=== PATIENT | male | born 1985 | race Caucasian/White ===

== ENCOUNTER 2018-02-05 12:18 | Observation (INO) | payer OTHER ==
[2018-02-05] MEDS ORDERED: NITRO-BID 2% UD PACKETS TOP ONE (12:35)
[2018-02-05] MEDS ORDERED: BABY ASPIRIN 81 MG CHEW PO ONE (12:35)
[2018-02-05] MEDS ORDERED: Reglan 10 MG/2 ML IV ONE (12:37)
[2018-02-05] MEDS ORDERED: NITRO-BID 2% UD PACKETS ONE (12:50)
[2018-02-05] MEDS ORDERED: BABY ASPIRIN 81 MG CHEW ONE (12:50)
[2018-02-05] MEDS ORDERED: Reglan 10 MG/2 ML ONE (12:50)
--- NOTE | 2018-02-05 12:56 | ERPHSYRPT ---
- History of Present Illness Time Seen by Provider: 02/05/18 12:21 Historian: patient, family, old records, other (Dr Michel) Exam Limitations: no limitations Patient Subjective Stated Complaint: chest pain, nausea Triage Nursing Assessment: pt to er c/o chest pain since approximately 0545, nausea, no diaphoresis, family hx of cardiac disease, father under age 50 wtih first [place] Physician History: awoke by CP this am; laying on his right side; pressure epig to right shoulder; strong family hx; at young age; had heart cath no blockage in the past; ate [employer] afterwards without effect Timing/Duration: today Activities at Onset: sleep Quality: pressure, sharpness Location: substernal, epigastric Chest Pain Radiation: back Severity of Pain-Max: severe Severity of Pain-Current: moderate Modifying Factors: Improves With: nothing Associated Symptoms: nausea, heartburn, abdominal pain Prior Chest Pain/Cardiac Workup: non-cardiac Nitro Today/Relief: provided by ED Aspirin Treatment Today: provided by ED Allergies/Adverse Reactions: No Known Drug Allergies Allergy (Unverified 02/05/18 14:04) Home Medications: Citalopram Hydrobromide 20 mg* [ceLEXa 20 MG] 02/05/18 [History] Pravastatin Sodium 02/05/18 [History] Hx Tetanus, Diphtheria Vaccination/Date Given: No Hx Influenza Vaccination/Date Given: No Hx Pneumococcal Vaccination/Date Given: No - Review of Systems Constitutional: No Symptoms Eyes: No Symptoms Ears, Nose, & Throat: No Symptoms Respiratory: No Cough, No Dyspnea, No Wheezing Cardiac: Chest Pain, No Palpitations, No Syncope Abdominal/Gastrointestinal: Abdominal Pain, Nausea, No Vomiting, No Diarrhea Genitourinary Symptoms: No Symptoms Musculoskeletal: No Symptoms Skin: No Symptoms Neurological: No Symptoms Psychological: No Symptoms Endocrine: No Symptoms Hematologic/Lymphatic: No Symptoms Immunological/Allergic: No Symptoms - Past Medical History Pertinent Past Medical History: Yes Neurological History: No Pertinent History ENT History: No Pertinent History Cardiac History: Coronary Artery Disease, Hypertension Respiratory History: No Pertinent History Endocrine Medical History: No Pertinent History Musculoskeletal History: No Pertinent History GI Medical History: GERD History: No Pertinent History Psycho-Social History: No Pertinent History Male Reproductive Disorders: No Pertinent History - Past Surgical History Past Surgical History: Yes Neuro Surgical History: No Pertinent History Cardiac: Cardiac Catheterization Respiratory: No Pertinent History Gastrointestinal: No Pertinent History Genitourinary: Kidney Surgery Musculoskeletal: No Pertinent History Male Surgical History: No Pertinent History Other Surgical History: tonsils - Social History Smoking Status: Never smoker Exposure to second hand smoke: No Alcohol Use: Socially Drug Use: none Patient Lives Alone: No Significant Family History: heart disease, hypertension - Nursing Vital Signs Nursing Vital Signs: Initial Vital Signs Temperature 97.9 F 02/05/18 12:24 Pulse Rate 98 H 02/05/18 12:24 Respiratory Rate 30 H 02/05/18 12:24 Blood Pressure 143/84 02/05/18 12:24 O2 Sat by Pulse Oximetry 98 02/05/18 12:24 Pain Scale Pain Intensity 2 - Physical Exam General Appearance: moderate distress Eye Exam: PERRL/EOMI, eyes nml inspection, No photophobia Ears, Nose, Throat Exam: normal ENT inspection, TMs normal, pharynx normal, moist mucous membranes Neck Exam: normal inspection, non-tender, supple, full range of motion, No meningismus, No carotid bruit, No JVD Respiratory Exam: normal breath sounds, lungs clear, airway intact, No chest tenderness, No respiratory distress Cardiovascular Exam: regular rate/rhythm, normal heart sounds, normal peripheral pulses, capillary refill <2 sec, No murmur Gastrointestinal/Abdomen Exam: soft, normal bowel sounds, tenderness (epig> RUQ) , No distention, No guarding, No rebound, No organomegaly Rectal Exam: deferred Back Exam: normal inspection, normal range of motion, No CVA tenderness, No vertebral tenderness Extremity Exam: normal inspection, normal range of motion, No pelvis stable, No ghada's sign, No pedal edema Neurologic Exam: alert, oriented x 3, cooperative, reflesher II-XII nml as tested, normal mood/affect, nml cerebellar function, nml station & gait Skin Exam: normal color, warm, dry, No rash Lymphatic Exam: No adenopathy SpO2 Interpretation: normal SpO2: 97 Oxygen Delivery: Room Air - Course Nursing assessment & vital signs reviewed: Yes EKG Interpreted by Me: RATE (93), Sinus Rhythm, NORMAL AXIS, NORMAL INTERVALS, NORMAL QRS, NORMAL ST-T Rhythm Strip: Rate (92), Normal Sinus Rhythm - Radiology Exams Chest X-ray Interpretation: Reviewed by me, Teleradiologist Report, No Pneumothorax, Nml Heart Size, Infiltrates (right base and elevated right ced diapraghm), Other (atelectasis with infiltrate right base) Ordered Tests: Active Orders 24 hr Category Date Time Status Nip Wrapper STAT Care 02/05/18 12:36 Active EKG-ER Only STAT Care 02/05/18 12:35 Active Pulse Oximetry (ED) STAT Care 02/05/18 12:35 Active Re-Check Vital Signs STAT Care 02/05/18 12:35 Active CHEST 1 VIEW (PORTABLE) Stat Exams 02/05/18 12:36 Completed AMYLASE Stat Lab 02/05/18 12:45 Completed BLOOD CULTURE Stat Lab 02/05/18 14:36 Ordered CBC W DIFF Stat Lab 02/05/18 12:45 Completed CMP Stat Lab 02/05/18 12:45 Completed LIPASE Stat Lab 02/05/18 12:45 Completed NT PRO BNP Stat Lab 02/05/18 12:45 Completed PROTIME WITH INR Stat Lab 02/05/18 12:45 Received TROPONIN Stat Lab 02/05/18 13:51 Completed Transfer Order Routine Transfer 02/05/18 Ordered Medication Summary Generic Name Dose Route Start Last Admin Trade Name Freq PRN Reason Stop Dose Admin Ceftriaxone Sodium/Dextrose 1 g in 50 mls @ 100 mls/hr 02/05/18 14:36 Rocephin 1 Gm-D5w 50 Ml Bag IV 02/05/18 15:05 STAT STA Discontinued Medications Generic Name Dose Route Start Last Admin Trade Name Freq PRN Reason Stop Dose Admin Acetaminophen Confirm 02/05/18 14:04 Tylenol Extra Strength 500 Mg Administered 02/05/18 14:05 Dose 1,000 mg .ROUTE .STK-MED ONE Acetaminophen 1,000 mg 02/05/18 14:05 02/05/18 14:07 Tylenol Extra Strength 500 Mg PO 02/05/18 14:06 1,000 mg STAT STA Administration Aspirin 324 mg 02/05/18 12:35 02/05/18 12:53 Baby Aspirin 81 Mg Chew PO 02/05/18 12:36 324 mg STAT ONE Administration Aspirin Confirm 02/05/18 12:50 Baby Aspirin 81 Mg Chew Administered 02/05/18 12:51 Dose 81 mg .ROUTE .STK-MED ONE Metoclopramide HCl 10 mg 02/05/18 12:37 02/05/18 12:56 Reglan 10 Mg/2 Ml IV 02/05/18 12:38 10 mg STAT ONE Administration Metoclopramide HCl Confirm 02/05/18 12:50 Reglan 10 Mg/2 Ml Administered 02/05/18 12:51 Dose 10 mg .ROUTE .STK-MED ONE Nitroglycerin 1 gm 02/05/18 12:35 02/05/18 12:54 Nitro-Bid 2% Ud Packets TOP 02/05/18 12:36 1 gm STAT ONE Administration Nitroglycerin Confirm 02/05/18 12:50 Nitro-Bid 2% Ud Packets Administered 02/05/18 12:51 Dose 1 gm .ROUTE .STK-MED ONE Sucralfate 1,000 mg 02/05/18 13:00 02/05/18 13:09 Carafate Suspension 1000 Mg/10 Ml PO 02/05/18 13:01 1,000 mg STAT ONE Administration Sucralfate Confirm 02/05/18 13:03 Carafate 1 Gm Administered 02/05/18 13:04 Dose 1 g PO .STK-MED ONE Lab/Rad Data: Laboratory Result Diagrams 02/05/18 12:45 02/05/18 12:45 Laboratory Results 02/05/18 02/05/18 02/05/18 Range/Units 13:51 12:45 12:45 WBC (4.0-10.5) K/mm3 RBC (4.1-5.6) M/mm3 Hgb (12.5-18.0) gm/dl Hct (42-50) % MCV (78-100) fl MCH (26-32) pg MCHC (32-36) g/dl RDW (11.5-14.0) % Plt Count (150-450) K/mm3 MPV (6-9.5) fl Gran % (36.0-66.0) % Lymphocytes % (24.0-44.0) % Monocytes % (0.0-12.0) % Eosinophils % (0.00-5.0) % Basophils % (0.0-0.4) % Basophils # (0-0.4) Sodium 142 (137-145) mmol/L Potassium 4.1 (3.5-5.1) mmol/L Chloride 103 (98-107) mEq/L Carbon Dioxide 27 (22-30) mmol/L Anion Gap 17.1 H (5-15) MEQ/L BUN 18 (9-20) mg/dl Creatinine 0.73 (0.66-1.25) mg/dl Estimated GFR > 60 ML/MIN Glucose 124 H (74-106) mg/dL Calcium 9.8 (8.4-10.2) mg/dl Total Bilirubin 0.90 (0.2-1.3) mg/d? AST 25 (17-59) U/L ALT 35 (0-50) U/L Alkaline Phosphatase 76 (38-126) U/L Troponin I < 0.012 (0.000-0.034) ng/ml NT-Pro-B Natriuret Pep 20.5 (0-450) pg/ml Serum Total Protein 8.2 (6.3-8.2) mg/dl Albumin 4.6 (3.5-5.0) g/dl Amylase 65 (30-110) U/L Lipase 102 (23-300) U/L 02/05/18 Range/Units 12:45 WBC 7.2 (4.0-10.5) K/mm3 RBC 5.06 (4.1-5.6) M/mm3 Hgb 14.8 (12.5-18.0) gm/dl Hct 43.3 (42-50) % MCV 85.6 (78-100) fl MCH 29.2 (26-32) pg MCHC 34.2 (32-36) g/dl RDW 14.4 H (11.5-14.0) % Plt Count 252 (150-450) K/mm3 MPV 9.8 H (6-9.5) fl Gran % 67.6 H (36.0-66.0) % Lymphocytes % 24.2 (24.0-44.0) % Monocytes % 7.1 (0.0-12.0) % Eosinophils % 0.8 (0.00-5.0) % Basophils % 0.3 (0.0-0.4) % Basophils # 0.02 (0-0.4) Sodium (137-145) mmol/L Potassium (3.5-5.1) mmol/L Chloride (98-107) mEq/L Carbon Dioxide (22-30) mmol/L Anion Gap (5-15) MEQ/L BUN (9-20) mg/dl Creatinine (0.66-1.25) mg/dl Estimated GFR ML/MIN Glucose (74-106) mg/dL Calcium (8.4-10.2) mg/dl Total Bilirubin (0.2-1.3) mg/d? AST (17-59) U/L ALT (0-50) U/L Alkaline Phosphatase (38-126) U/L Troponin I (0.000-0.034) ng/ml NT-Pro-B Natriuret Pep (0-450) pg/ml Serum Total Protein (6.3-8.2) mg/dl Albumin (3.5-5.0) g/dl Amylase (30-110) U/L Lipase (23-300) U/L reviewed - Progress Progress: improved (after meds), re-examined Air Movement: good Progress Note: 02/05/18 13:38 rechecked after meds and pain resolved; still slight tenderness epig area with palpation; VS ok; CBC ok; CXR shows right basilar atelectasis with infiltrate;; EKG unremarkable; will monitor and recheck; Dr Michel had called from the office for him to be seen 02/05/18 14:22 rechecked- patient developed a non-specific JEAN and was given tylenol; Troponin pending; will continue to monitor and recheck 02/05/18 14:34 recheck and Troponin ok; Dr Michel consulted and will admit to obs; patient and family notified and agree; will start ATBs here Blood Culture(s) Obtained: No Discussed with : Anand (consulted and sent from office and will admit) Will see patient in: hospital (observation) Counseled pt/family regarding: lab results, diagnosis, need for follow-up, rad results - Departure Time of Disposition: 14:43 Departure Disposition: Observation Clinical Impression: Chest pain at rest, infiltrate right lower lobe Condition: Serious Critical Care Time: No Referrals: KAYLIN MICHEL [Primary Care Provider] - Instructions: Chest Pain (DC)
[2018-02-05] MEDS ORDERED: Carafate SUSPENSION 1000 MG/10 ML PO ONE (13:00)
--- NOTE | 2018-02-05 13:02 | XRAY ---
Indication: Chest pain. Comparison: None Portable chest slightly underinflated with right base infiltrate versus atelectasis and right hemidiaphragm elevation. Remaining heart, lungs, and bony thorax unremarkable.
[2018-02-05] MEDS ORDERED: Carafate 1 GM PO ONE (13:03)
[2018-02-05 13:08] LABS: BASOPHIL % 0.3 % (0.0-0.4); Basophil (Absolute #) 0.02 (0-0.4); Eosinophil % 0.8 % (0.00-5.0); Eosinophil (Absolute #) 0.06 (0-0.5); Granulocyte Absolute (ANC) 4.84 (1.4-6.9); Granulocytes % 67.6 % (36.0-66.0); Hematocrit 43.3 % (42-50); Hemoglobin 14.8 gm/dl (12.5-18.0); Lymphocyte (Absolute #) 1.73 (1.0-4.6); Lymphocytes % 24.2 % (24.0-44.0); Mean Cell Volume 85.6 fl (78-100); Mean Corpuscular Hemoglobin 29.2 pg (26-32); Mean Corpuscular Hgb Concent. 34.2 g/dl (32-36); Mean Platelet Volume 9.8 fl (6-9.5); Monocyte (Absolute #) 0.51 (0.0-1.3); Monocytes % 7.1 % (0.0-12.0); Platelet Count 252 K/mm3 (150-450); Red Blood Count 5.06 M/mm3 (4.1-5.6); Red Cell Distribution Width 14.4 % (11.5-14.0); White Blood Count 7.2 K/mm3 (4.0-10.5)
[2018-02-05 13:31] LABS: AMYLASE 65 U/L (30-110); LIPASE 102 U/L (23-300)
[2018-02-05 13:33] LABS: ALBUMIN 4.6 g/dl (3.5-5.0); ALKALINE PHOSPHATASE 76 U/L (38-126); ANION GAP 17.1 MEQ/L (5-15); BLOOD UREA NITROGEN 18 mg/dl (9-20); CHLORIDE 103 mEq/L (98-107); Calcium 9.8 mg/dl (8.4-10.2); Carbon Dioxide 27 mmol/L (22-30); Creatinine 1 0.73 mg/dl (0.66-1.25); Glucose 124 mg/dL (74-106); Potassium 4.1 mmol/L (3.5-5.1); SGOT/AST 25 U/L (17-59); SGPT/ALT 35 U/L (0-50); SODIUM 142 mmol/L (137-145); Total Protein 8.2 mg/dl (6.3-8.2)
[2018-02-05 13:41] LABS: NT PRO BNP 20.5 pg/ml (0-450)
[2018-02-05] MEDS ORDERED: TYLENOL EXTRA STRENGTH 500 MG ONE (14:04)
[2018-02-05] MEDS ORDERED: TYLENOL EXTRA STRENGTH 500 MG PO STA (14:05)
[2018-02-05] MEDS ORDERED: ROCEPHIN 1 Gm-D5w 50 ml Bag** 1 G/50 ML IVPB IV STA (14:36)
[2018-02-05] MEDS ORDERED: ROCEPHIN 1 Gm-D5w 50 ml Bag** 1 G/50 ML IVPB IV ONE (14:47)
[2018-02-05 15:10] LABS: INR 1.18 (0.8-3.0)
[2018-02-05] MEDS ORDERED: MAALOX ES 30 ML UNIT DOSE PO PRN (15:49)
[2018-02-05] MEDS ORDERED: Zofran 4 MG/2 ML VIAL IV PRN (15:49)
[2018-02-05] MEDS ORDERED: MILK OF MAGNESIA 30 ML PO PRN (15:49)
[2018-02-05] MEDS ORDERED: Senokot-S Tablet PO PRN (15:49)
[2018-02-05] MEDS: TYLENOL 325 MG PO PRN ×2 (17:43→21:41)
[2018-02-05] MEDS: NITRO-BID 2% UD PACKETS TOP SCH (21:31)
[2018-02-06] MEDS ORDERED: Nitrostat 0.4 MG Tablet SL PRN (04:55)
[2018-02-06] MEDS ORDERED: MORPHINE SULFATE 2 MG INJ IV PRN (05:18)
[2018-02-06] MEDS: NITRO-BID 2% UD PACKETS TOP SCH ×2 (05:24→14:44)
[2018-02-06] MEDS: TYLENOL 325 MG PO PRN ×2 (05:24→12:52)
[2018-02-06 06:02] LABS: Risk Ratio 6.2
[2018-02-06 06:13] LABS: LDL, DIRECT 132.37 mg/dL (30-100)
--- NOTE | 2018-02-06 08:19 | PCM.NOTE ---
Date and Time: 02/06/18812 Subjective Assessment: Sent to ER yesterday from office with chest pain/epigastric/RUQ pain. Found to have infiltrate vs atelectasis on his CXR. [place] better with reglan in the ER. This morning started having L sided upper abd/chest pain. Troponin was negative. Other than the troponin done in the ER and the one done this morning , no troponins were done overnight. He vomited after eating last night. Objective Exam General Appearance: no apparent distress, alert, other (mildly somnolent) Neurologic Exam: oriented x 3, cooperative Skin Exam: normal color, warm, dry, No rash Respiratory Exam: normal breath sounds, lungs clear, No crackles/rales, No rhonchi, No wheezing Cardiovascular Exam: regular rate/rhythm, normal heart sounds, No murmur Gastrointestinal/Abdomen Exam: soft, normal bowel sounds, No tenderness, No distention, No mass, No guarding, No rebound Extremity Exam: No pedal edema, No swelling Back Exam: normal inspection, No rash OBJECTIVE DATA Vital Signs: Vital Signs - 24 hr Temp Pulse Pulse Resp BP Pulse Ox 02/06/18 07:02 98.4 F 78 20 122/81 95 02/06/18 04:25 97.9 F 72 20 117/62 98 02/06/18 00:04 98.3 F 88 20 121/61 94 L 02/05/18 20:10 98.3 F 100 H 18 124/59 96 02/05/18 16:12 97.8 F 105 H 20 134/61 95 02/05/18 15:49 97.8 F 105 H 20 134/61 95 02/05/18 15:21 102 H 16 109/69 98 02/05/18 14:47 97 02/05/18 12:48 97 02/05/18 12:35 99 H 18 146/89 96 02/05/18 12:24 97.9 F 95 H 98 H 30 H 143/84 98 Pain Assessment - Last Documented Pain Intensity 2 Pain Scale Used 0-10 Pain Scale Intake and Output: Intake & Output 02/03/18 02/04/18 02/05/18 02/06/18 11:59 11:59 11:59 11:59 Intake Total 1460 Balance 1460 Weight 157.8 kg Lab Results: Lab Results-Last 24 Hours 02/06/18 02/06/18 Range/Units 05:10 05:10 Troponin I < 0.012 (0.000-0.034) ng/ml Triglycerides 177 H (30-150) mg/dl Cholesterol 229 H (50-200) mg/dl LDL Cholesterol 132.37 H (30-100) mg/dL HDL Cholesterol 37 L (40-60) mg/dl Heart Disease Risk Ratio 6.2 Assessment/Plan (1) Pneumonia Current Visit: Yes Status: Acute Qualifiers: Pneumonia type: due to unspecified organism Laterality: right Lung location: lower lobe of lung Qualified Code(s): J18.1 - Lobar pneumonia, unspecified organism Assessment & Plan: On rocephin and zithromax. Infiltrate v atelectasis; however if PNA could explain his SOB yesterday morning. Code(s): J18.9 - PNEUMONIA, UNSPECIFIED ORGANISM (2) Chest pain Current Visit: Yes Status: Acute Qualifiers: Chest pain type: unspecified Qualified Code(s): R07.9 - Chest pain, unspecified Assessment & Plan: Two troponins that were done was negative. Incident report being filed regarding the fact that only 2 troponins were done. Code(s): R07.9 - CHEST PAIN, UNSPECIFIED (3) Abdominal pain Current Visit: Yes Status: Acute Qualifiers: Abdominal location: unspecified location Qualified Code(s): R10.9 - Unspecified abdominal pain Assessment & Plan: was epigastric and RUQ; now LUQ. I think his chronic intermittent pain may be somewhat related to slowed gastric emptying. Will try reglan at home intermittenly. Code(s): R10.9 - UNSPECIFIED ABDOMINAL PAIN (4) Hyperlipidemia Current Visit: Yes Status: Acute Qualifiers: Hyperlipidemia type: unspecified Qualified Code(s): E78.5 - Hyperlipidemia , unspecified Code(s): E78.5 - HYPERLIPIDEMIA, UNSPECIFIED
[2018-02-06] MEDS ORDERED: Ecotrin 325 MG PO SCH (10:00)
[2018-02-06] MEDS ORDERED: ROCEPHIN 1 Gm-D5w 50 ml Bag** 1 G/50 ML IVPB IV SCH (10:00)
[2018-02-06] MEDS ORDERED: ENOXAPARIN SODIUM SQ SCH (10:00)
--- NOTE | 2018-02-06 15:31 | PCM.DS ---
Discharge Summary Date of Admission: 02/05/18 15:15 Admitting Physician: KAYLIN NUÑEZ Primary Care Provider: KAYLIN NUÑEZ Allergies Allergies No Known Drug Allergies Allergy (Unverified 02/05/18 14:04) Hospital Summary - Hospital Course Hospital Course: Pt admitted through the ER with pneumonia and CP (r/o MS) after being seen in the office by me. He woke early yesterday morning with epigastric pain, 10/10 and shortness of breath. Pain was better, still in epigstrum and RUQ , yesterday when he came to the office. He had a negative troponin and EKG in the ER. No further troponins were done, in error, until early this morning when he started having LUQ pain. That troponin was also negative. He states that reglan given him in the ER made his abd pain better. Currently he is tolerating po and feeling better. - Vitals & Intake/Output Vital Signs: Vital Signs Temperature 97.3 F 02/06/18 11:08 Pulse Rate 82 02/06/18 11:08 Respiratory Rate 20 02/06/18 11:08 Blood Pressure 129/63 02/06/18 11:08 O2 Sat by Pulse Oximetry 95 02/06/18 11:08 Intake & Output: Intake & Output 02/04/18 02/05/18 02/06/18 02/07/18 11:59 11:59 11:59 11:59 Intake Total 0 480 Balance 2059 480 Weight 157.8 kg - Lab Result Diagrams: 02/05/18 12:45 02/05/18 12:45 Lab Results-Last 24 Hrs: Lab Results-Last 24 Hours 02/06/18 02/06/18 Range/Units 05:10 05:10 Troponin I < 0.012 (0.000-0.034) ng/ml Triglycerides 177 H (30-150) mg/dl Cholesterol 229 H (50-200) mg/dl LDL Cholesterol 132.37 H (30-100) mg/dL HDL Cholesterol 37 L (40-60) mg/dl Heart Disease Risk Ratio 6.2 - Procedures and Test Procedures and Tests throughout Hospitalization: Therapy Orders & Screens 02/05/18 20:44 EKG ONCE Comment: Diagnosis: chest pain 02/06/18 05:00 EKG ONCE Comment: Diagnosis: chest pain 02/07/18 05:00 EKG ONCE Comment: Diagnosis: chest pain 02/08/18 05:00 EKG ONCE Comment: Diagnosis: chest pain Discharge Exam General Appearance: no apparent distress (exam done this morning), obese, other (somewhat somnolent, but awake during the interview) Neurologic Exam: alert, cooperative Skin Exam: normal color, warm, dry, rash Ears, Nose, Throat Exam: moist mucous membranes Respiratory Exam: normal breath sounds, lungs clear, No crackles/rales, No rhonchi, No wheezing Cardiovascular Exam: regular rate/rhythm, normal heart sounds, No murmur Gastrointestinal/Abdomen Exam: soft, normal bowel sounds, tenderness (mild epigastric and LUQ ttp), guarding, No distention, No rebound Extremity Exam: normal inspection, No pedal edema, No swelling Final Diagnosis/Problem List - Final Discharge Diagnosis/Problem (1) Pneumonia Current Visit: Yes Status: Acute Assessment & Plan: Home on po augmentin. (2) Chest pain Current Visit: Yes Status: Acute Assessment & Plan: Will get one more troponin; if negative, will d/c pt to home. (3) Abdominal pain Current Visit: Yes Status: Chronic Assessment & Plan: acute on chronic. OK to try reglan short term for his episodes of abd pain. 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 (4) Hyperlipidemia Current Visit: Yes Status: Acute Assessment & Plan: He was given a statin here for his elevated cholesterol. However, his [place] 10 yr risk is < 1%, so I will have our staff send a dietary sheet and will try dietary changes for 3-6 mo. - Discharge Disposition: Home, Self-Care Condition: Good Prescriptions: New Amoxicillin/Potassium Clav [Augmentin 875-125 Tablet] 875 mg PO BID #20 tablet Metoclopramide HCl 10 mg [Reglan 10 MG] 10 mg PO QID #12 tablet Continue Citalopram Hydrobromide [Celexa] 40 mg PO HS Pravastatin Sodium [Pravachol] 10 mg PO HS #30 tablet Additional Instructions: Hold the celexa if the reglan is taken. Only take reglan for 2 days in a row, maximum. Only take as needed. If any involuntary muscle movements are noted, stop the reglan right away and contact your doctor or go to ER as these movements can become permanent. Follow up with: JOAQUIN,KAYLIN [Primary Care Provider] - 02/17/18 11:00 am
[2018-02-06 16:06] VITALS: BP 170/83; PULSE 79; O2SAT 98
[2018-02-06] MEDS ORDERED: Zocor 10MG PO SCH (22:00)
[2018-02-06] MEDS ORDERED: ceLEXa 20 MG PO SCH (22:00)
[2018-02-06] MEDS ORDERED: NON-FORMULARY ITEM (Citalopram Hydrobromide [Celexa] 40 MG) PO SCH (22:00)
[2018-02-06] MEDS ORDERED: NON-FORMULARY ITEM (Pravastatin Sodium [Pravachol] 10 MG) PO SCH (22:00)
== END 2018-02-06 17:20 | disposition home or self-care (01) ==
LOC: ED 12:18 → MED SURG 15:15
PROVIDERS: ADMIT Family Medicine; ATTEND Family Medicine
DX: J18.1 Lobar pneumonia, unspecified organism (principal); R07.9 Chest pain, unspecified; R10.9 Unspecified abdominal pain; E78.5 Hyperlipidemia, unspecified; F41.9 Anxiety disorder, unspecified; G47.30 Sleep apnea, unspecified
CPT/HCPCS: 36415; 71045; 80053; 80061; 82150; 83690; 83721; 83880; 84484; 85025; 85610; 87040; 93005; 93041; 93268; 96365; 99285; G0378; J0696; J1650; J2270; J2405; A9270-GY

== ENCOUNTER 2022-11-05 08:54 | Emergency (ER) | payer OTHER ==
[2022-11-05 09:13] VITALS: BP 143/81; PULSE 63; O2SAT 97
== END 2022-11-05 09:32 | disposition left against medical advice (07) ==
LOC: ED 08:54
DX: I10 Essential (primary) hypertension (principal)
CPT/HCPCS: 99281; G0463

== ENCOUNTER 2024-08-23 19:19 | Emergency (ER) | payer OTHER ==
[2024-08-23 19:45] VITALS: TEMP 98
--- NOTE | 2024-08-23 19:49 | ERPHSYRPT ---
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 Triage Nursing Assessment: pt is aox3, pupils perrl, afebrile, pt appears in pain, pt resps easy and non labored, pt radial pulses strong and equal, pt abd tender to the right side with pain that radiates to the right flank and pain, bowel sounds are normoactive x4, pt skin pink warm dry. Allergies/Adverse Reactions: No Known Drug Allergies Allergy (Verified 08/23/24 19:45) Home Medications: Citalopram Hydrobromide [Celexa] 40 mg PO HS 02/05/18 [History] Amlodipine Besylate 5 mg [Norvasc 5 mg] 10 mg PO DAILY 08/23/24 [History] Fluoxetine HCl 10 mg [Prozac 10 mg] 10 mg PO DAILY 08/23/24 [History] Hx Tetanus, Diphtheria Vaccination/Date Given: Yes Hx Influenza Vaccination/Date Given: No Hx Pneumococcal Vaccination/Date Given: No Immunizations Up to Date: Yes Travel Risk - International Travel Have you traveled outside of the country in past 3 weeks: No - Emerging Infectious Disease Are you exhibiting symptoms associated with any current EIDs: No - Past Medical History Pertinent Past Medical History: Yes Neurological History: No Pertinent History ENT History: No Pertinent History Cardiac History: High Cholesterol, Hypertension Respiratory History: No Pertinent History Endocrine Medical History: No Pertinent History Musculoskeletal History: No Pertinent History GI Medical History: GERD History: Other Psycho-Social History: Anxiety, Depression Male Reproductive Disorders: No Pertinent History Other Medical History: unknown kidney injury-surgery as a child. pre-DM. OCD. dyslexia - Past Surgical History Past Surgical History: Yes Neuro Surgical History: No Pertinent History Cardiac: Cardiac Catheterization Respiratory: No Pertinent History Gastrointestinal: Appendectomy Genitourinary: Kidney Surgery Musculoskeletal: No Pertinent History Male Surgical History: No Pertinent History Other Surgical History: R kidney surgery as a child-congential defect Significant Family History: heart disease, hypertension - Social History Smoking Status: Former smoker Exposure to second hand smoke: No Alcohol Use: Socially Drug Use: none Patient Lives Alone: No - Social Determinants of Health Will the patient participate in the screening: Yes Do you worry about a steady place to live?: No Do you have any problems with any of the following?: No known problems In the past 12 months,have you had to go without utilities?: No Transportation Issues: No Has anyone in your support network made you feel unsafe?: No Have you or anyone in your house had to go without enough: No - Nursing Vital Signs Nursing Vital Signs: Initial Vital Signs Temperature 98.0 F 08/23/24 19:25 Pulse Rate 89 08/23/24 19:25 Respiratory Rate 20 08/23/24 19:25 Blood Pressure 150/89 08/23/24 19:25 O2 Sat by Pulse Oximetry 94 L 08/23/24 19:25 Pain Scale Pain Intensity 2 - Physical Exam SpO2: 94 Ordered Tests: Active Orders 24 hr Category Date Time Status EKG-ER Only STAT Care 08/23/24 19:47 Active ABDOMEN AND PELVIS W/0 CONTRAS [CT] Stat Exams 08/23/24 19:47 Completed CBC W DIFF Stat Lab 08/23/24 19:35 Completed CMP Stat Lab 08/23/24 19:35 Completed LIPASE Stat Lab 08/23/24 19:35 Completed TROPONIN Q4H Lab 08/23/24 19:35 Completed TROPONIN Q4H Lab 08/24/24 00:00 Ordered TROPONIN Q4H Lab 08/24/24 04:00 Ordered UA W/RFX UR CULTURE Stat Lab 08/23/24 19:50 Completed Medication Summary Discontinued Medications Generic Name Dose Route Start Last Admin Trade Name Freq PRN Reason Stop Dose Admin Sodium Chloride 1,000 mls @ 999 mls/hr 08/23/24 19:47 08/23/24 20:59 Sodium Chloride 0.9% 1000 Ml IV 08/23/24 20:47 Infused .Q1H1M STA Infusion Acetaminophen 1,000 mg in 100 mls @ 400 mls/hr 08/23/24 19:48 08/23/24 19:56 Ofirmev IV 08/23/24 20:02 400 mls/hr 1HRPRIOR ONE Administration Acetaminophen Confirm 08/23/24 19:51 Ofirmev Administered 08/23/24 19:52 Dose 100 mls @ ud IV [facility] ONE Sodium Chloride Confirm 08/23/24 19:51 Sodium Chloride 0.9% 1000 Ml Administered 08/23/24 19:52 Dose 1,000 mls @ ud .ROUTE .STK-MED ONE Lab/Rad Data: Laboratory Result Diagrams 08/23/24 19:35 08/23/24 19:35 Laboratory Results 08/23/24 08/23/24 08/23/24 Range/Units 19:50 19:35 19:35 WBC (4.23-9.07) x10^3/uL RBC (4.63-6.08) x10^6/uL Hgb (13.7-17.5) g/dL Hct (40.1-51.0) % MCV (79.0-92.2) fL MCH (25.7-32.2) pg MCHC (32.3-36.5) g/dL RDW (11.6-14.4) % Plt Count (163-337) x10^3/uL MPV (9.4-12.4) fL Gran % (34.0-67.9) % Immature Gran % (Auto) (0.001-0.429) % Nucleat RBC Rel Count (0.00-0.2) % Eos # (Auto) (0.04-0.54) x10^3/uL Immature Gran # (Auto) (0.001-0.031) x10^3u/L Absolute Lymphs (auto) (1.32-3.57) x10^3/uL Absolute Monos (auto) (0.30-0.82) x10^3/uL Absolute Nucleated RBC (0.00-0.012) x10^3u/L Lymphocytes % (21.8-53.1) % Monocytes % (5.3-12.2) % Eosinophils % (0.8-7.0) % Basophils % (0.2-1.2) % Absolute Granulocytes (1.78-5.38) x10^3/uL Basophils # (0.01-0.08) x10^3/uL Sodium 140 (135-145) mmol/L Potassium 4.0 (3.5-5.1) mmol/L Chloride 102 (98-107) mmol/L Carbon Dioxide 26 (22-30) mmol/L Anion Gap 16.3 H (5-15) MEQ/L BUN 18 (9-20) mg/dL Creatinine 0.82 (0.66-1.25) mg/dL Estimated GFR 115.3 ML/MIN Glucose 135 H (74-106) mg/dL Calcium 9.8 (8.4-10.2) mg/dL Total Bilirubin 1.20 (0.2-1.3) mg/dL AST 28 (17-59) U/L ALT 39 (0-50) U/L Alkaline Phosphatase 106 (38-126) U/L Troponin I < 0.012 (0.000-0.033) ng/mL Serum Total Protein 8.1 (6.3-8.2) g/dL Albumin 4.8 (3.5-5.0) g/dL Lipase 93 (23-300) U/L Urine Color Yellow (Yellow) Urine Appearance Clear (Clear) Urine pH 5.5 (4.6-8.0) Ur Specific [place] 1.025 (1.005-1.030) Urine Protein Trace A (Negative) Urine Glucose (UA) Negative (Negative) mg/dL Urine Ketones Negative (Negative) Urine Blood Negative (Negative) Urine Nitrite Negative (Negative) Urine Bilirubin Negative (Negative) Urine Urobilinogen 1.0 A (0.2) mg/dL Ur Leukocyte Esterase Negative (Negative) U Hyaline Cast (Auto) NONE SEEN (0-2) /LPF Urine Microscopic RBC 0-2 (0-5) /HPF Urine Microscopic WBC 0-2 (0-5) /HPF Ur Epithelial Cells None Seen (None Seen) /HPF Urine Bacteria None Seen (None Seen) /HPF Urine Culture Reflexed NO (NO) 08/23/24 Range/Units 19:35 WBC 9.5 H (4.23-9.07) x10^3/uL RBC 4.95 (4.63-6.08) x10^6/uL Hgb 14.5 (13.7-17.5) g/dL Hct 43.5 (40.1-51.0) % MCV 87.9 (79.0-92.2) fL MCH 29.3 (25.7-32.2) pg MCHC 33.3 (32.3-36.5) g/dL RDW 14.6 H (11.6-14.4) % Plt Count 299 (163-337) x10^3/uL MPV 9.6 (9.4-12.4) fL Gran % 74.8 H (34.0-67.9) % Immature Gran % (Auto) 0.6 H (0.001-0.429) % Nucleat RBC Rel Count 0.0 (0.00-0.2) % Eos # (Auto) 0.04 (0.04-0.54) x10^3/uL Immature Gran # (Auto) 0.06 H (0.001-0.031) x10^3u/L Absolute Lymphs (auto) 1.84 (1.32-3.57) x10^3/uL Absolute Monos (auto) 0.45 (0.30-0.82) x10^3/uL Absolute Nucleated RBC 0.00 (0.00-0.012) x10^3u/L Lymphocytes % 19.3 L (21.8-53.1) % Monocytes % 4.7 L (5.3-12.2) % Eosinophils % 0.4 L (0.8-7.0) % Basophils % 0.2 (0.2-1.2) % Absolute Granulocytes 7.12 H (1.78-5.38) x10^3/uL Basophils # 0.02 (0.01-0.08) x10^3/uL Sodium (135-145) mmol/L Potassium (3.5-5.1) mmol/L Chloride (98-107) mmol/L Carbon Dioxide (22-30) mmol/L Anion Gap (5-15) MEQ/L BUN (9-20) mg/dL Creatinine (0.66-1.25) mg/dL Estimated GFR ML/MIN Glucose (74-106) mg/dL Calcium (8.4-10.2) mg/dL Total Bilirubin (0.2-1.3) mg/dL AST (17-59) U/L ALT (0-50) U/L Alkaline Phosphatase (38-126) U/L Troponin I (0.000-0.033) ng/mL Serum Total Protein (6.3-8.2) g/dL Albumin (3.5-5.0) g/dL Lipase (23-300) U/L Urine Color (Yellow) Urine Appearance (Clear) Urine pH (4.6-8.0) Ur Specific [place] (1.005-1.030) Urine Protein (Negative) Urine Glucose (UA) (Negative) mg/dL Urine Ketones (Negative) Urine Blood (Negative) Urine Nitrite (Negative) Urine Bilirubin (Negative) Urine Urobilinogen (0.2) mg/dL Ur Leukocyte Esterase (Negative) U Hyaline Cast (Auto) (0-2) /LPF Urine Microscopic RBC (0-5) /HPF Urine Microscopic WBC (0-5) /HPF Ur Epithelial Cells (None Seen) /HPF Urine Bacteria (None Seen) /HPF Urine Culture Reflexed (NO) - Progress Progress: improved Medical Desision Making - Diagnostic Testing Diagnostic test were ordered, analyzed, and reviewed by me: Yes Radiological Interpretation: Reviewed by me, Teleradiologist Report - Risk of complications Minimal Risk: Minimal risk of morbidity - Departure Departure Disposition: Home Clinical Impression: Right flank pain Condition: Stable Critical Care Time: No Referrals: SKINNY GILMAN DO [Primary Care Provider] - Follow up/PCP as directed Additional Instructions: follow up w/ PCP Dr Gilman this week recommend ibuprofen for pain, heating pad for discomfort recommend oral hydration w/ clear liquids/electrolyte containing fluids return to ED if: develop fevers that do not resolve w/ tylenol, develop bloody vomiting or stool, pain becomes unbearable
[2024-08-23] MEDS ORDERED: Sodium Chloride 0.9% 1000 ML 1,000 ML ONE (19:51)
[2024-08-23] MEDS ORDERED: OFIRMEV 100 ML IV ONE (19:51)
[2024-08-23] MEDS: Sodium Chloride 0.9% 1000 ML 1,000 ML IV STA (19:55)
[2024-08-23] MEDS: OFIRMEV 1,000 MG/100 ML ML IV ONE (19:56)
[2024-08-23 20:01] LABS: Absolute Neutrophil Ct (ANC) 7.12 x10^3/uL (1.78-5.38); BASOPHIL % 0.2 % (0.2-1.2); Basophil (Absolute #) 0.02 x10^3/uL (0.01-0.08); Eosinophil % 0.4 % (0.8-7.0); Eosinophil (Absolute #) 0.04 x10^3/uL (0.04-0.54); Hematocrit 43.5 % (40.1-51.0); Hemoglobin 14.5 g/dL (13.7-17.5); IMMATURE GRAN # 0.06 x10^3u/L (0.001-0.031); IMMATURE GRAN % 0.6 % (0.001-0.429); Lymphocyte (Absolute #) 1.84 x10^3/uL (1.32-3.57); Lymphocytes % 19.3 % (21.8-53.1); Mean Cell Volume 87.9 fL (79.0-92.2); Mean Corpuscular Hemoglobin 29.3 pg (25.7-32.2); Mean Corpuscular Hgb Concent. 33.3 g/dL (32.3-36.5); Mean Platelet Volume 9.6 fL (9.4-12.4); Monocyte (Absolute #) 0.45 x10^3/uL (0.30-0.82); Monocytes % 4.7 % (5.3-12.2); Neutrophil % 74.8 % (34.0-67.9); Platelet Count 299 x10^3/uL (163-337); Red Blood Count 4.95 x10^6/uL (4.63-6.08); Red Cell Distribution Width 14.6 % (11.6-14.4); White Blood Count 9.5 x10^3/uL (4.23-9.07)
[2024-08-23 20:10] LABS: Appearance Clear (Clear); Bacteria None Seen /HPF (None Seen); Bilirubin Negative (Negative); Blood Negative (Negative); Epithelial Cells None Seen /HPF (None Seen); Glucose, Urine Negative (Negative); Hyaline Casts NONE SEEN /LPF (0-2); Ketones Negative (Negative); Leukocyte Esterase Negative (Negative); Nitrite Negative (Negative); Ph 5.5 (4.6-8.0); Protein,Urine Dip Trace (Negative); RBC 0-2 /HPF (0-5); Specific Gravity 1.025 (1.005-1.030); WBC 0-2 /HPF (0-5)
[2024-08-23 20:15] LABS: ALBUMIN 4.8 g/dL (3.5-5.0); ANION GAP 16.3 MEQ/L (5-15); BILIRUBIN,TOTAL 1.2 mg/dL (0.2-1.3); Calcium 9.8 mg/dL (8.4-10.2); Creatinine 1 0.82 mg/dL (0.66-1.25); EST GLOMERULAR FILTRATION RATE 115.3 ML/MIN; Total Protein 8.1 g/dL (6.3-8.2)
[2024-08-23 20:29] LABS: ADD URINE CULTURE? NO (NO)
[2024-08-23 20:50] VITALS: PULSE 81; RESP 16
[2024-08-23 21:02] VITALS: BP 122/63
--- NOTE | 2024-08-23 21:06 | XRAY ---
CLINICAL HISTORY: right flank pain COMPARISON: 12/20/2017 TECHNIQUE: Non-contrast CT of the abdomen and pelvis was performed, with the following protocol: axial images with, and reconstructed coronal and sagittal images. One of the following dose reduction techniques was utilized for this exam: Automated exposure control, adjustment of the mA and/or kV according to patient size, and use of iterative reconstruction. FINDINGS: Subsegmental atelectatic changes are noted with focal areas of pleural thickening in the right basal lung. An atelactatic band is also visualized in the left basal lung. Abdomen: Liver: Liver is normal in size and attenuation. No focal lesions, cysts, or masses were identified. Hepatic vasculature and biliary ducts are unremarkable. Gallbladder and Biliary System: The gallbladder is normal in size and shape. No wall thickening, pericholecystic fluid, or gallstones were identified. The common bile duct is normal in caliber without dilation. Pancreas: Pancreatic head, body, and tail are visualized and appear normal in size and density. No pancreatic masses or calcifications were noted. The pancreatic duct is not dilated. Spleen: Normal in size, shape, and density. No splenic lesions or masses were identified. Kidneys and Adrenal Glands: Both kidneys are normal in size, shape, and position. Cortical thickness is within normal limits. No renal calculi or hydronephrosis. Adrenal glands are unremarkable with no evidence of masses or hyperplasia. Pelvis: Urinary Bladder: Normal in contour and wall thickness. No intraluminal lesions identified. Prostate: Normal in size and contour. No focal lesions or masses identified. Seminal Vesicles: Normal in size and appearance. No abnormalities noted. Rectum and Sigmoid Colon: Normal wall thickness and no evidence of mass. Peritoneal and Retroperitoneal Structures: No free fluid or abnormal fluid collections were identified within the abdomen or pelvis. No lymphadenopathy was noted. Bowel: Surgical carey are seen in the right iliac fossa, likely due to a previous appendicectomy. Please correlate with history. The visualized bowel loops are normal in caliber and appearance. No evidence of bowel obstruction or wall thickening. Bones and Soft Tissues: Mild scoliotic deformity is noted with convexity to the left. Moderate degenerative changes are seen in the visualized thoracolumbar spine. Soft tissues are unremarkable. No fractures or abnormal masses were identified. IMPRESSION: 1. No acute intra-abdominal pathology is identified. 2. No significant change from previous study. Electronically Signed by: Francesca Cárdenas MD. (08/23/2024 21:02:26 EDT)
[2024-08-23 22:08] VITALS: O2SAT 94
== END 2024-08-23 22:40 | disposition home or self-care (01) ==
LOC: ED 19:19
DX: R10.9 Unspecified abdominal pain (principal); I10 Essential (primary) hypertension; E78.5 Hyperlipidemia, unspecified; Z79.899 Other long term (current) drug therapy
CPT/HCPCS: 36415; 74176; 80053; 81001; 83690; 84484; 85025; 93005; 96360; 96365; 99284

== ENCOUNTER 2025-09-11 18:00 | Emergency (ER) | payer OTHER ==
[2025-09-11] MEDS ORDERED: EMLA Cream 5 GM TP ONE (18:12)
[2025-09-11] MEDS ORDERED: Adacel Vial IM ONE (18:12)
[2025-09-11 18:13] VITALS: BP 123/70; PULSE 94; TEMP 97.1; O2SAT 98
--- NOTE | 2025-09-11 18:13 | ERPHSYRPT ---
- History of Present Illness Time Seen by Provider: 09/11/25 18:07 Source: patient, family Exam Limitations: no limitations Physician History: This is a 39-year-old white male patient who was brought to the emergency department by his spouse by private vehicle with the complaint of skin laceration to the left posterior lateral lower leg. Patient's tetanus status is not up-to-date. Patient was working out in the yard there was a lot of dirt that they were working with and he suffered an accidental skin laceration to the lower leg against a piece of metal that was phylicia. Patient has a history of hypertension, hyperlipidemia and depression. Timing/Duration: today Quality: painful Severity: mild Location: extremities (Left lower extremity) Possible Causes: other (Sharp, phylicia metal) Associated Symptoms: denies symptoms Allergies/Adverse Reactions: No Known Drug Allergies Allergy (Verified 09/11/25 18:13) Home Medications: Citalopram Hydrobromide [Celexa] 40 mg PO HS 02/05/18 [History] Amlodipine Besylate 5 mg [Norvasc 5 mg] 5 mg PO DAILY 08/23/24 [History] Fluoxetine HCl 10 mg [Prozac 10 mg] 60 mg PO DAILY 08/23/24 [History] Hx Tetanus, Diphtheria Vaccination/Date Given: Yes Hx Influenza Vaccination/Date Given: No Hx Pneumococcal Vaccination/Date Given: No Travel Risk - International Travel Have you traveled outside of the country in past 3 weeks: No - Emerging Infectious Disease Are you exhibiting symptoms associated with any current EIDs: No - Review of Systems Constitutional: No Symptoms Eyes: No Symptoms Ears, Nose, & Throat: No Symptoms Respiratory: No Symptoms Cardiac: No Symptoms Abdominal/Gastrointestinal: No Symptoms Genitourinary Symptoms: No Symptoms Musculoskeletal: No Symptoms Skin: Other (10 cm vertically oriented superficial skin laceration left posterior lateral lower extremity) Neurological: No Symptoms Psychological: No Symptoms Endocrine: No Symptoms Hematologic/Lymphatic: No Symptoms - Past Medical History Pertinent Past Medical History: Yes Neurological History: No Pertinent History ENT History: No Pertinent History Cardiac History: High Cholesterol, Hypertension Respiratory History: No Pertinent History Endocrine Medical History: No Pertinent History Musculoskeletal History: No Pertinent History GI Medical History: GERD History: Other Psycho-Social History: Anxiety, Depression Male Reproductive Disorders: No Pertinent History Other Medical History: unknown kidney injury-surgery as a child. pre-DM. OCD. dyslexia - Past Surgical History Past Surgical History: Yes Neuro Surgical History: No Pertinent History Cardiac: Cardiac Catheterization Respiratory: No Pertinent History Gastrointestinal: Appendectomy Genitourinary: Kidney Surgery Musculoskeletal: No Pertinent History Male Surgical History: No Pertinent History Other Surgical History: R kidney surgery as a child-congential defect Significant Family History: heart disease, hypertension - Social History Smoking Status: Former smoker Exposure to second hand smoke: No Alcohol Use: Socially Drug Use: none Patient Lives Alone: No - Social Determinants of Health Will the patient participate in the screening: Yes Do you worry about a steady place to live?: No In the past 12 months,have you had to go without utilities?: No Transportation Issues: No Has anyone in your support network made you feel unsafe?: No Have you or anyone in your house had to go w/o enough food: No - Nursing Vital Signs Nursing Vital Signs: Initial Vital Signs Temperature 97.1 F 09/11/25 18:07 Pulse Rate 94 H 09/11/25 18:07 Blood Pressure 123/70 09/11/25 18:07 O2 Sat by Pulse Oximetry 98 09/11/25 18:07 Pain Scale Pain Intensity 3 - Physical Exam General Appearance: no apparent distress, alert Eye Exam: PERRL/EOMI, eyes nml inspection Ears, Nose, Throat Exam: normal ENT inspection, moist mucous membranes Neck Exam: normal inspection, non-tender, supple, full range of motion Respiratory Exam: airway intact, No chest tenderness, No respiratory distress Gastrointestinal/Abdomen Exam: No tenderness Rectal Exam: not done Back Exam: normal inspection, normal range of motion, No CVA tenderness, No vertebral tenderness Extremity Exam: normal range of motion, pelvis stable, lacerations (Approximately 10 cm vertical skin laceration without foreign body and with skin edge bleeding left posterior lateral lower leg) Neurologic Exam: alert, oriented x 3, cooperative, isolation washer II-XII nml as tested Skin Exam: laceration (See extremity section description) Lymphatic Exam: No adenopathy SpO2 Interpretation: normal O2 Delivery: Room Air Procedures - Laceration/Wound Repair Left Posterior Lateral Ankle Time of Procedure: 18:15 Wound Location: Left, lower leg Wound Length (cm): 10 Wound's Depth, Shape: superficial, linear Wound Explored: to base Irrigated: Yes Hibiclens Prep: Yes Anesthesia: 1% Lidocaine Volume Anesthetic (ccs): 10 Wound Repaired With: Jose E (8 skin jose e were used to approximate the left lower leg skin laceration) Layer Closure?: No Sterile Dressing Applied?: Yes Splint Applied?: No Sling Applied?: No - Course Nursing assessment & vital signs reviewed: Yes Ordered Tests: Active Orders 24 hr Category Date Time Status Wound Care STAT Care 09/11/25 18:05 Active Medication Summary Discontinued Medications Generic Name Dose Route Start Last Admin Trade Name Sandi PRN Reason Stop Dose Admin Bacitracin Zinc 0.9 each 09/11/25 18:23 Bacitracin Packet 1 Each Pckt TP 09/11/25 18:24 STAT ONE Cephalexin HCl 500 mg 09/11/25 18:20 09/11/25 18:27 Cephalexin Mh500 Mg Capsule PO 09/11/25 18:21 500 mg STAT ONE Administration Cephalexin HCl Confirm 09/11/25 18:24 Cephalexin Mh500 Mg Capsule Administered 09/11/25 18:25 Dose 500 mg .ROUTE .STK-MED ONE Diphtheria/Tetanus/Acell Pertussis 0.5 ml 09/11/25 18:05 09/11/25 18:20 Tdap --Diph,Pertuss(Acell),Tet Vac/Pf 0.5 Ml Vial IM 09/11/25 18:06 0.5 ml .ONCE ONE Administration Diphtheria/Tetanus/Acell Pertussis Confirm 09/11/25 18:12 Tdap --Diph,Pertuss(Acell),Tet Vac/Pf 0.5 Ml Vial Administered 09/11/25 18:13 Dose 0.5 ml IM .STK-MED ONE Lidocaine HCl Confirm 09/11/25 18:15 Lidocaine Hcl 1% 20 Ml Mdv 20 Ml Ml Administered 09/11/25 18:16 Dose 1 ml .ROUTE .STK-MED ONE Lidocaine HCl 5 ml 09/11/25 18:20 09/11/25 18:23 Lidocaine Hcl 1% 20 Ml Mdv 20 Ml Ml IJ 09/11/25 18:21 5 ml STAT ONE Administration Lidocaine/Prilocaine 2.5 gm 09/11/25 18:06 09/11/25 18:31 Lidocaine/Prilocaine 5 Gm 5 Gm Tube TP 09/11/25 18:07 Not Given STAT ONE Lidocaine/Prilocaine Confirm 09/11/25 18:12 Lidocaine/Prilocaine 5 Gm 5 Gm Tube Administered 09/11/25 18:13 Dose 5 gm TP .STK-MED ONE - Progress Progress: improved Progress Note: 09/11/25 18:11 My medical decision making and the assignment of low complexity of this patient's medical issue today is based on review of the patient's past medical history, reviewed the patient's medication list, reviewed patient drug allergy list, history present illness and physical findings on examination. The workup in this patient does not necessitate radiographic or laboratory studies. Differential diagnosis includes but is not limited to left lower extremity skin laceration, left lower extremity skin tear, left lower extremity abrasion Counseled pt/family regarding: diagnosis, need for follow-up Medical Desision Making - Independent Historian Additional History obtained from: Spouse - Diagnostic Testing Diagnostic test were ordered, analyzed, and reviewed by me: No - Risk of complications Low Risk: Low risk of morbidity from additional dx testing or treatment - Departure Departure Disposition: Home Clinical Impression: Laceration of skin of left lower leg Condition: Stable Critical Care Time: No Referrals: SKINNY GILMAN DO [Primary Care Provider, [facility]] - Follow up/PCP as directed Additional Instructions: Keep the current dressing in place until 8 PM on 09/12/2025. At that time you may remove the dressing and rinse the site off daily thereafter with soapy water. Blot dry use a asian studies program chair. Reapply antibiotic ointment after each cleansing and drying and apply bandage. Staple removal in 8 to 10 days. If there are no contraindications, use Tylenol and ibuprofen for pain control. Prescriptions: Cephalexin Mh 500 mg [Keflex 500 mg] 500 mg PO TID #15 cap
[2025-09-11] MEDS ORDERED: XYLOCAINE 1% HCL 20 ML MDV ONE (18:15)
[2025-09-11] MEDS: Adacel Vial IM ONE (18:20)
[2025-09-11] MEDS: XYLOCAINE 1% HCL 20 ML MDV IJ ONE (18:23)
[2025-09-11] MEDS ORDERED: KEFLEX 500 MG ONE (18:24)
[2025-09-11] MEDS: KEFLEX 500 MG PO ONE (18:27)
[2025-09-11] MEDS: EMLA Cream 5 GM TP ONE (18:31)
[2025-09-11] MEDS ORDERED: BACIGUENT PACKET ONE (18:32)
[2025-09-11] MEDS: BACIGUENT PACKET TP ONE (18:33)
== END 2025-09-11 18:45 | disposition home or self-care (01) ==
LOC: ED 18:00
DX: S81.812A Laceration without foreign body, left lower leg, initial encounter (principal); W45.8XXA Other foreign body or object entering through skin, initial encounter; Y93.H2 Activity, gardening and landscaping; Y92.007 Garden or yard of unspecified non-institutional (private) residence as the place of occurrence of the external cause; I10 Essential (primary) hypertension; Z79.899 Other long term (current) drug therapy; Z23 Encounter for immunization